=== PATIENT | male | born 1980 | race Caucasian/White ===

== ENCOUNTER 2021-07-08 11:41 | Emergency (ER) | payer OTHER, SELFPAY ==
[2021-07-08 11:53] VITALS: BP 124/74; PULSE 98; O2SAT 98
--- NOTE | 2021-07-08 11:57 | ED_ITS ---
HPI - Animal Bite General Chief Complaint: Animal Bite Stated Complaint: ?dog bite Time Seen by Provider: 07/08/21 11:57 Source: patient, EMS and educational interpreter Mode of arrival: EMS Limitations: language barrier History of Present Illness HPI narrative: 41-year-old male here with complaints of dog bite to the right upper thigh while working. 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 He does not note a dog it was. He tells me was a medium-sized dog. Patient has not had rabies series. The patient has received a tetanus shot in the last 5 years. Related Data Previous Rx's Medication Instructions Recorded amoxicillin 875 mg-potassium 1 tab PO BID #14 tab 07/08/21 clavulanate 125 mg tablet (Augmentin) Allergies Allergy/AdvReac Type Severity Reaction Status Date / Time No Known Allergies Allergy Verified 07/08/21 12:12 Review of Systems Review of Systems: Yes all other systems are reviewed and are negative Constitutional: Constitutional: Reports no additional constitutional complaints, Denies body ache(s), Denies chills, Denies fever(s), Denies headache(s) and Denies weakness Eyes: Eyes: Reports no additional eye complaints and Denies change in vision ENT: Reports system reviewed and no additional complaints, except as documented, Denies dizziness, Denies headache(s), Denies nasal congestion, Denies nasal discharge and Denies neck pain Cardiovascular: Cardiovascular: Reports no additional cardiovascular complaints, Denies chest pain, Denies leg edema and Denies dyspnea Respiratory: Respiratory: Reports no additional respiratory complaints, Denies cough and Denies dyspnea Gastrointestinal: Gastrointestinal: Reports no additional gastrointestinal complaints, Denies abdominal pain, Denies diarrhea, Denies nausea and Denies vomiting Genitourinary: Genitourinary: Denies urinary incontinence Musculoskeletal: Musculoskeletal: Reports no additional musculoskeletal complaints, Denies back pain, Denies arthralgias, Denies joint swelling, Denies neck pain, Denies numbness and Denies tingling Integumentary/Breasts: Skin/Breast: Reports system reviewed and no additional complaints, except as docu and Denies rash Neurologic: Reports system reviewed and no additional complaints, except as documented, Denies dizziness, Denies headache(s), Denies numbness, Denies tingling and Denies weakness PMF Past Medical History Attestation statement: The following information was validated with the patient. Source: old records reviewed and nursing notes reviewed Medical History No known health problems Social History Social History Advance Directives: No Advance Directives Information Provided: No Physical Exam Vital Signs: Vital Signs: Last Vital Signs Temp 98.6 F 07/08/21 12:09 Pulse 98 07/08/21 12:09 Resp 18 07/08/21 12:09 BP 134/78 07/08/21 12:09 Pulse Ox 98 07/08/21 12:09 BMI result Body Mass Index 27.8 : Other: No diff with ROM of the RLE Male genitals images: 1. 4 cm laceration. Bleeding is controlled Course Course Course Narrative: Dog bite from unknown dog to the right inner thigh. Patient has laceration that will require suture repair. Patient will also require the rabies series 1330-see procedure note. Reviewed worrisome signs and symptoms of when to return to the emergency department. Comfortable discharge home. Procedures Laceration Laceration 1: Description: linear Depth: simple, single layer Local Anesthetic: lidocaine 2% Amount of anesthesia used (mL): 5 Pre-repair: wound explored and irrigated extensively Skin layer closed with: vicryl Size (cm): 5-0 Number of sutures: 3 Technique: simple, interrupted Discharge Plan Discharge Clinical Impression: Dog bite, Laceration of leg, right Patient Disposition: Home, Self-Care Instructions: Animal Bite (ED), Laceration (ED), Rabies (ED) Additional Instructions: Suturas en 7-10 d?as. Regreso por enrojecimiento, secreci?n, olor o fiebre Consulte el calendario de casos de daniel para obtener benita vacunas adicionales. Seguimiento con conexi?n laboral, ya que se trataba de brad lesi?n relacionada con el trabajo [phone] Prescriptions: New amoxicillin-pot clavulanate [Augmentin] 875-125 mg tablet 1 tab PO BID Qty: 14 RF: 0 Stand Alone Forms: Work/School Release Print Language: Gabonese
[2021-07-08 12:09] VITALS: BP 134/78; PULSE 98; RESP 18; TEMP 37; O2SAT 98; BMI 27.8
[2021-07-08] MEDS: Rabies Vaccine (PCEC)/PF 1 ML VIAL IM (12:36)
[2021-07-08] MEDS: Lidocaine HCl 2 % MPF 5 ML VIAL SUBCUT (12:38)
[2021-07-08] MEDS: Rabies Immune Globulin/PF 900 UNIT/3 ML VIAL 1814.36 UNIT IM (12:38)
== END 2021-07-08 13:27 | disposition home or self-care (01) ==
LOC: HO.ED 13:18
PROVIDERS: Emergency Provider Emergency Medicine
DX: S71.151A Open bite, right thigh, initial encounter (principal); W54.0XXA Bitten by dog, initial encounter; Z20.3 Contact with and (suspected) exposure to rabies; Y93.01 Activity, walking, marching and hiking; Y92.007 Garden or yard of unspecified non-institutional (private) residence as the place of occurrence of the external cause; Y99.0 Civilian activity done for income or pay
CPT/HCPCS: 12002; 90375; 90471; 90675; 96372; 99283; 99284

== ENCOUNTER 2021-07-11 13:43 | Outpatient (REF) | payer OTHER, SELFPAY | END 2021-07-11 13:44 | disposition home or self-care (01) | LOC: HO.TELHLTH 13:43 | DX: Z29.14 Encounter for prophylactic rabies immune globulin (principal); T14.8XXD Other injury of unspecified body region, subsequent encounter; W54.0XXD Bitten by dog, subsequent encounter | CPT/HCPCS: 90471; 90675 ==

== ENCOUNTER 2021-07-15 10:39 | Emergency (ER) | payer OTHER, SELFPAY ==
[2021-07-15 10:57] VITALS: BP 141/91; PULSE 78; RESP 19; TEMP 36.6; O2SAT 99; BMI 27.8
--- NOTE | 2021-07-15 12:59 | ED_ITS ---
HPI - Wound/Laceration General Chief Complaint: Wound/Laceration Stated Complaint: stiches removed Time Seen by Provider: 07/15/21 11:28 Source: patient Mode of arrival: ambulatory History of Present Illness HPI narrative: 41-year-old male with no significant past medical history presenting to the ED for suture removal from right thigh s/p dog bite on 07/08/2021, and 3rd dose of rabies vaccination. Denies any complaints from wound including drainage, fever, chills, pain. Reports compliance with antibiotic Onset (ago): day(s) Related Data Previous Rx's Medication Instructions Recorded amoxicillin 875 mg-potassium 1 tab PO BID #14 tab 07/08/21 clavulanate 125 mg tablet (Augmentin) Allergies Allergy/AdvReac Type Severity Reaction Status Date / Time No Known Allergies Allergy Verified 07/08/21 12:12 Review of Systems Review of Systems: Constitutional:No Fever, No Chills ENT/Mouth: No Ear Pain, No Nasal Congestion, No sore throat, No Rhinorrhea, No Swallowing Difficulty Cardiovascular: No Chest Pain, No SOB Respiratory: No Cough, No Sputum, No Wheezing Gastrointestinal: No Nausea, No Vomiting, No Diarrhea, No Constipation, No Abdominal pain Musculoskeletal: No joint pain, No Myalgias, No Joint Swelling Skin: + Skin Lesions, No rash Neuro: No Weakness, No Numbness, No Paresthesias Yes all other systems are reviewed and are negative [facility] [place] Past Medical History Attestation statement: The following information was validated with the patient. Medical History No known health problems Social History Social History Advance Directives: No Advance Directives Information Provided: Yes Physical Exam Vital Signs: Vital Signs: Last Vital Signs Temp 98 F 07/15/21 10:57 Pulse 78 07/15/21 10:57 Resp 19 07/15/21 10:57 BP 141/91 H 07/15/21 10:57 Pulse Ox 99 07/15/21 10:57 BMI result Body Mass Index 27.8 Const: General: cooperative, healthy appearing and no acute distress Orientation/consciousness: patient oriented x3 Limitations: no limitations HENMT: Head: Yes normal to inspection Ears: hearing grossly normal bilaterally General nose exam: Normal external nose present Face and sinus: Yes normal facial exam Eyes: General: appearance normal, both eyes and all related structures EOM: EOMs intact bilaterally Neck: Neck: Yes normal visual inspection and Yes no meningeal signs Resp: Effort & Inspection: normal respiratory effort and no respiratory distress Auscultation: clear to auscultation bilaterally Cardio: Rate: regular rate Heart sounds: S1 normal heart sound present and S2 normal heart sound present GI: Inspection: Yes normal to inspection Palpation (GI): Soft to palpation, nontender, no guarding and not rigid : General: Yes no CVA tenderness Back/Spine/Pelvis: Back: no CVA tenderness Skin: Other: Healing laceration noted to right proximal thigh with 3 sutures intact. Sutures removed with slight wound opening, Steri-Strips applied for reinforcement. No surrounding cellulitis, no drainage, no tenderness, no fluctuance/induration or streaking Rashes: no rashes Wounds: no wounds Neuro: General: patient oriented x3 and no meningeal signs Gait exam (Neuro): Normal gait present Extrem: General: Yes normal to inspection MDM - Wound/Laceration MDM Narrative Medical decision making narrative: 41-year-old male with no significant past medical history presenting to the ED for suture removal from right thigh s/p dog bite on 07/08/2021, and 3rd dose of rabies vaccination. On exam vital signs stable, NAD, sutures removed from right thigh with slight wound opening, Steri- Strips applied for reinforcement, no evidence of infection, patient has been compliant with Augmentin. Patient also given 3rd dose of rabies vaccine Medical Records Attestation: I reviewed the patient's medical records. Lab Data Attestation: I reviewed the patient's lab results. Procedures Procedure Narrative Procedure Narrative: Suture removal: 3 sutures removed from right proximal thigh Slight wound dehiscence > Steri-Strips applied No drainage/cellulitis/erythema or tenderness Discharge Plan Discharge Clinical Impression: Visit for suture removal, Need for rabies vaccination Patient Disposition: Home, Self-Care Instructions: Stitches Removal (ED), Rabies (ED) Additional Instructions: Your sutures were removed today in the ED. Steri-Strips were applied, do not pick at the Steri-Strips they will follow up on our own A area begins look infected, there is drainage, streaking, or you fever please return to the ED. Continue taking previously prescribed antibiotic Make sure you follow-up for the last dose of the rabies vaccine on 07/22 Prescriptions: No Action amoxicillin-pot clavulanate [Augmentin] 875-125 mg tablet 1 tab PO BID Qty: 14 RF: 0
[2021-07-15] MEDS: Rabies Vaccine (PCEC)/PF 1 ML VIAL IM (13:43)
== END 2021-07-15 14:00 | disposition home or self-care (01) ==
LOC: HO.ED 10:39
PROVIDERS: Emergency Provider Emergency Medicine
DX: Z29.14 Encounter for prophylactic rabies immune globulin (principal); Z48.02 Encounter for removal of sutures
CPT/HCPCS: 90471; 90675; 99283; 99284